=== PATIENT | female | born 1985 | race American Indian/Alaskan Native ===

== ENCOUNTER 2017-08-30 17:02 | Emergency (ER) | payer OTHER ==
[2017-08-30 17:02] VITALS: BMI 42.5
[2017-08-30 17:18] VITALS: PULSE 89; RESP 16; TEMP 98.4; O2SAT 100
[2017-08-30] MEDS ORDERED: Sodium Chloride 0.9% 1,000 ML IV STA (17:42)
--- NOTE | 2017-08-30 17:58 | ED PDOC ---
HPI: Female Pain Time Seen by Provider: 08/30/17 17:56 Chief Complaint (Nursing): Female Genitourinary Chief Complaint (Provider): vaginal bleeding History Per: Patient (32 y/o female h/o Anemia here with vaginal bleeding heavy x 1 day with bloodclots. Has had menses 2 weeks ago. No prior h/o abdominal vaginal bleeding.) Past Medical History Reviewed: Historical Data, Nursing Documentation, Vital Signs Vital Signs: Last Vital Signs Temp 98.4 F 08/30/17 17:14 Pulse 89 08/30/17 17:14 Resp 16 08/30/17 17:14 BP 187/111 H 08/30/17 17:14 Pulse Ox 100 08/30/17 17:14 - Medical History PMH: Arthritis, HTN (during ) - Family History Family History: States: No Known Family Hx - Home Medications Home Medications: Ambulatory Orders Medication Instructions Recorded Oxycodone HCl/Acetaminophen 5 - 325 mg PO Q4 PRN 01/29/16 [Percocet 5-325 mg Tablet] - Allergies Allergies/Adverse Reactions: Allergies Allergy/AdvReac Type Severity Reaction Status Date / Time scallops Allergy Mild RASH Verified 05/26/16 08:30 Review of Systems ROS Statement: Except As Marked, All Systems Reviewed And Found Negative Genitourinary Female: Positive for: Vaginal Bleeding Physical Exam - Reviewed Nursing Documentation Reviewed: Yes Vital Signs Reviewed: Yes - Physical Exam Appears: Positive for: Well, Non-toxic, No Acute Distress Head Exam: Positive for: ATRAUMATIC, NORMAL INSPECTION, NORMOCEPHALIC Skin: Positive for: Normal Color, Warm, DRY Eye Exam: Positive for: EOMI, Normal appearance, PERRL ENT: Positive for: Normal ENT Inspection Neck: Positive for: Normal, Painless ROM Cardiovascular/Chest: Positive for: Regular Rate, Rhythm Respiratory: Positive for: CNT, Normal Breath Sounds Gastrointestinal/Abdominal: Positive for: Normal Exam, Bowel Sounds, Soft Back: Positive for: Normal Inspection Extremity: Positive for: Normal ROM Neurologic/Psych: Positive for: Alert, Oriented - Laboratory Results Result Diagrams: 08/30/17 18:07 08/30/17 18:25 - ECG O2 Sat by Pulse Oximetry: 100 Disposition - Clinical Impression Clinical Impression: Dysfunctional uterine bleeding - Patient ED Disposition Is Patient to be Admitted: Transfer of Care - Disposition Disposition: Transfer of Care Disposition Time: 19:51 Condition: FAIR Forms: [employer] (Slovenian) Patient Signed Over To: Bettina Oliver Handoff Comments: REPEAT CBC AT 9PM/PENDING US READIN
[2017-08-30 18:40] LABS: BASO % 0.4 % (0.0-2.0); EOS # 0.1 K/uL (0.0-0.7); LYMPH # 2.2 K/uL (1.0-4.3); MEAN CELL VOLUME 77.5 fl (81.0-99.0); MEAN CORPUSCULAR HEMOGLOBIN 23.7 pg (27.0-31.0); MEAN CORPUSCULAR HGB CONC 30.5 g/dL (33.0-37.0); MEAN PLATELET VOLUME 9.5 fl (7.2-11.7); MONO # 0.5 K/uL (0.0-0.8); MONO % 6.5 % (0.0-10.0); NEUT # 4.4 K/uL (1.8-7.0); NEUT % 61.1 % (50.0-75.0); RED CELL DISTRIBUTION WIDTH 16.5 % (11.5-14.5); WHITE BLOOD COUNT 7.2 K/uL (4.8-10.8)
[2017-08-30 18:45] LABS: BLOOD UREA NITROGEN 15 mg/dl (7-17); CALCIUM 9.3 mg/dL (8.4-10.2); CARBON DIOXIDE 24 mmol/L (22-30); CHLORIDE 108 mmol/L (98-107); GFR AFRICAN-AMERICAN > 60; GLUCOSE,RANDOM 92 mg/dL (65-105); SODIUM 145 mmol/l (132-148)
--- NOTE | 2017-08-30 20:41 | ED PDOC ---
- Laboratory Results Result Diagrams: 08/30/17 21:15 08/30/17 18:25 - ECG O2 Sat by Pulse Oximetry: 100 - Progress ED Course And Treament: case endorsed to sports book writer from Oscar BARTON pending imaging, repeat CBC EXAM: US Pelvis, Transvaginal EXAM DATE/TIME: 08/30/2017 CLINICAL HISTORY: Signs and symptoms; Menstruation abnormalities; Irregular menstruation; Additional info: Evaluate for dyfunctional bleeding TECHNIQUE: Real-time transvaginal pelvic ultrasound (complete) with image documentation. Transvaginal imaging was used for better evaluation of the endometrium and adnexa. COMPARISON: No relevant comparison exam is available at the time of interpretation. FINDINGS: Uterus/cervix: The uterus is normal in size and contour. The endometrial stripe is normal in appearance and thickness, measuring 7 mm in maximal thickness. No endometrial or myometrial lesion is identified. Right ovary: The right ovary is normal in size and appearance. Doppler imaging demonstrates vascular flow in the right ovary. No right adnexal mass is visualized. Left ovary: The left ovary is normal in size and appearance. Doppler imaging demonstrates vascular flow in the left ovary. No left adnexal mass is visualized. Free fluid: A small amount of simple appearing free fluid in the posterior cul- de-sac is physiologic in amount. IMPRESSION: No evident acute abnormality. No etiology for the patient's dysfunctional uterine bleeding is identified. Repeat Hgb stable. Patient educated on findings, copies of labs/report given. Advised follow up [employer] as scheduled. Return to ED for worsening/concerning symptoms. Disposition - Clinical Impression Clinical Impression: Dysfunctional uterine bleeding, Anemia - POA Present On Arrival: None - Disposition Disposition: Routine/Home Disposition Time: 21:38 Condition: STABLE Instructions: Dysfunctional Uterine Bleeding (ED), Anemia (ED) Forms: [employer] (Setswana)
[2017-08-30 21:24] LABS: BASO # 0.1 K/uL (0.0-0.2); BASO % 0.6 % (0.0-2.0); EOS # 0.3 K/uL (0.0-0.7); HEMATOCRIT 30.6 % (34.0-47.0); LYMPH # 2.8 K/uL (1.0-4.3); LYMPH % 31.8 % (20.0-40.0); MEAN CELL VOLUME 76.7 fl (81.0-99.0); MEAN CORPUSCULAR HEMOGLOBIN 23.8 pg (27.0-31.0); MEAN CORPUSCULAR HGB CONC 31.1 g/dL (33.0-37.0); MEAN PLATELET VOLUME 9.1 fl (7.2-11.7); MONO # 0.4 K/uL (0.0-0.8); MONO % 4.9 % (0.0-10.0); NEUT # 5.3 K/uL (1.8-7.0); NEUT % 59.7 % (50.0-75.0); NRBC % 0.5 % (0.0-0.0); RED CELL DISTRIBUTION WIDTH 16.3 % (11.5-14.5); WHITE BLOOD COUNT 8.8 K/uL (4.8-10.8)
[2017-08-30 21:54] VITALS: BP 152/97
--- NOTE | 2017-08-31 09:29 | US ---
HISTORY: EVALUATE FOR DYFUNCTIONAL BLEEDING COMPARISON: None available. TECHNIQUE: Transvaginal only FINDINGS: UTERUS: Measures 9.6 x 4.6 x 6.1 cm. Normal in size and appearance. No fibroid or other mass lesion seen. ENDOMETRIUM: Measures 7 mm in diameter. Unremarkable. CERVIX: No cervical abnormality identified. RIGHT OVARY: Measures 2.8 x 1.7 x 2.6 cm. No solid mass. Normal flow. LEFT OVARY: Measures 3.1 x 1.3 x 2.3 cm. No solid mass. Normal flow. FREE FLUID: Small amount of free fluid in the cul-de-sac OTHER FINDINGS: None. IMPRESSION: Unremarkable pelvic ultrasound examination. Preliminary interpretation of this examination was reported by [employer] at 7:59 p.m. on 08/30/2017. There is concurrence of this report with the preliminary interpretation.
== END 2017-08-30 21:54 | disposition home or self-care (01) ==
LOC: H.ER 17:02
DX: N93.8 Other specified abnormal uterine and vaginal bleeding (principal); D64.9 Anemia, unspecified
CPT/HCPCS: 76830; 80048; 81025; 84443; 85025; 86850; 86900; 99283; J7040

== ENCOUNTER 2017-10-16 21:01 | Emergency (ER) | payer BC, OTHER ==
[2017-10-16 21:01] VITALS: BMI 42.5
[2017-10-16 21:17] VITALS: BP 151/95; PULSE 87; RESP 17; TEMP 99.5; O2SAT 100
[2017-10-16] MEDS ORDERED: Sodium Chloride 0.9% 1,000 ML IV STA (22:06)
[2017-10-16 22:46] LABS: RBC URINE 22 /hpf (0-3); URINE BILIRUBIN NEGATIVE (NEGATIVE); URINE BLOOD MODERATE (NEGATIVE); URINE COLOR YELLOW (YELLOW); URINE GLUCOSE (UA) NEG (Normal); URINE KETONE NEGATIVE (NEGATIVE); URINE LEUKOCYTE ESTERASE MOD Leu/uL (Negative); URINE PROTEIN 100 mg/dL (NEGATIVE); URINE UROBILINOGEN 0.2-1.0 mg/dL (0.2-1.0); WBC URINE 41 /hpf (0-5)
[2017-10-16 22:47] LABS: BASO # 0.1 K/uL (0.0-0.2); BASO % 0.7 % (0.0-2.0); EOS # 0.1 K/uL (0.0-0.7); EOS % 1.3 % (0.0-4.0); HEMATOCRIT 28.6 % (34.0-47.0); LYMPH # 1.8 K/uL (1.0-4.3); LYMPH % 18.4 % (20.0-40.0); MEAN CELL VOLUME 74.5 fl (81.0-99.0); MEAN CORPUSCULAR HEMOGLOBIN 22.8 pg (27.0-31.0); MEAN CORPUSCULAR HGB CONC 30.7 g/dL (33.0-37.0); MONO # 0.6 K/uL (0.0-0.8); MONO % 5.7 % (0.0-10.0); NEUT # 7.1 K/uL (1.8-7.0); NEUT % 73.9 % (50.0-75.0); RED CELL DISTRIBUTION WIDTH 16.7 % (11.5-14.5); WHITE BLOOD COUNT 9.7 K/uL (4.8-10.8)
[2017-10-16 23:01] LABS: ALKALINE PHOSPHATASE 112 U/L (38-126); ALT/SGPT 18 U/L (9-52); AST/SGOT 28 U/L (14-36); BILIRUBIN,TOTAL 0.4 mg/dl (0.2-1.3); BLOOD UREA NITROGEN 12 mg/dl (7-17); CALCIUM 9.1 mg/dL (8.4-10.2); CARBON DIOXIDE 22 mmol/L (22-30); CHLORIDE 105 mmol/L (98-107); GFR AFRICAN-AMERICAN > 60; GLUCOSE,RANDOM 98 mg/dL (65-105); POTASSIUM 3.8 MMOL/L (3.6-5.0); SODIUM 142 mmol/l (132-148); TOTAL PROTEIN 8.4 G/DL (6.3-8.2)
[2017-10-16 23:07] LABS: ALB/GLOB RATIO 1.2 (1.0-2.1)
--- NOTE | 2017-10-16 23:10 | ED PDOC ---
HPI: Abdomen Time Seen by Provider: 10/16/17 21:23 Chief Complaint (Nursing): Abdominal Pain Chief Complaint (Provider): Abdominal Pain History Per: Patient History/Exam Limitations: no limitations Onset/Duration Of Symptoms: Days (x 2) Current Symptoms Are (Timing): Still Present Additional Complaint(s): Justine is a 32 year old female with a past medical history of anemia and tubal ligation who presents to the Emergency Department complaining of abdominal pain for the past 2 days. Patient states pain occurs in her lower abdominal radiating bilaterally to flanks and has worsen since onset. At time will decrease to tolerable intensity. Since coming back from work, pain has been severe. Patient states she only took laxative to relieve pain, but with no relief. [place] constipation, but with normal appetite. [place] nausea, but denies vomiting, urinary symptoms, vaginal bleeding discharge, fever and chills. PMD: No Family Provider Past Medical History Vital Signs: Last Vital Signs Temp 99.5 F 10/16/17 21:14 Pulse 87 10/16/17 21:14 Resp 17 10/16/17 21:14 BP 151/95 H 10/16/17 21:14 Pulse Ox 100 10/17/17 14:54 - Medical History PMH: Arthritis, HTN (during ) - Surgical History Other surgeries: Tubal ligation - Family History Family History: States: No Known Family Hx - Social History Current smoker - smoking cessation education provided: No Alcohol: Social Drugs: Denies - Home Medications Home Medications: Ambulatory Orders Medication Instructions Recorded Oxycodone HCl/Acetaminophen 5 - 325 mg PO Q4 PRN 01/29/16 [Percocet 5-325 mg Tablet] Ciprofloxacin HCl [Cipro] 500 mg PO BID #20 tab 10/17/17 Naproxen [Naprosyn] 1 tab PO BID PRN #30 tab 10/17/17 traMADol [Ultram] 50 mg PO TID PRN #10 tab 10/17/17 - Allergies Allergies/Adverse Reactions: Allergies Allergy/AdvReac Type Severity Reaction Status Date / Time scallops Allergy Mild RASH Verified 10/16/17 21:17 Review of Systems ROS Statement: Except As Marked, All Systems Reviewed And Found Negative (and as per HPI) Constitutional: Negative for: Fever, Chills Gastrointestinal: Positive for: Abdominal Pain (Lower abdominal pain radiating bilaterally to flanks) Genitourinary Female: Negative for: Dysuria, Hematuria, Vaginal Discharge Physical Exam - Reviewed Nursing Documentation Reviewed: Yes Vital Signs Reviewed: Yes - Physical Exam Appears: Positive for: Non-toxic, In Acute Distress Head Exam: Positive for: ATRAUMATIC, NORMOCEPHALIC Skin: Positive for: Warm, Dry Eye Exam: Positive for: EOMI, PERRL ENT: Negative for: Pharyngeal Erythema, Tonsillar Exudate Neck: Positive for: Painless ROM, Supple Cardiovascular/Chest: Positive for: Regular Rate, Rhythm, Chest Non Tender. Negative for: Murmur Respiratory: Positive for: Normal Breath Sounds. Negative for: Respiratory Distress Gastrointestinal/Abdominal: Positive for: Soft, Tenderness (mild suprapubic ttp) . Negative for: Mass, Distended, Guarding, Rebound Back: Positive for: L CVA Tenderness, R CVA Tenderness. Negative for: Vertebral Tenderness, Decreased ROM Extremity: Positive for: Normal ROM. Negative for: Deformity Lymphatic: Negative for: Adenopathy Neurologic/Psych: Positive for: Alert. Negative for: Motor/Sensory Deficits - Laboratory Results Result Diagrams: 10/16/17 22:44 10/16/17 22:44 Interpretation Of Abn Labs: Anemia, stable c/w previous. UA cw UTI - ECG O2 Sat by Pulse Oximetry: 100 (RA) Pulse Ox Interpretation: Normal Medical Decision Making Medical Decision Making: Time: 21:50 Impressions: Pelvic Pain and Flank Pain Differentials includes but not limited to: Cystitis, Urinary Tract Infection, Pyelonephritis, Renal Calculi, Enteritis, Colitis Plan: - CT Abdominal and Pelvis Without PO or IV Contrast - CMP - Drug Screen, Urine - CBC - Sodium Chloride 0.9% 1,000 ml IV 999 mls/hr - Toradol 30 mg IVP - Tylenol 325 mg Tab - Urine Culture - Urinalysis EXAM: CT Abdomen and Pelvis Without Intravenous Contrast CLINICAL HISTORY: 32 years old, female; Pain; Abdominal pain; Flank; Lower; Prior surgery; Surgery date: 6+ months; Surgery type: Tubal ligation; Additional info: Bilateral flank TECHNIQUE: Axial computed tomography images of the abdomen and pelvis without intravenous contrast. All CT scans at this facility use one or more dose reduction techniques, viz.: automated exposure control; ma/kV adjustment per patient size (including targeted exams where dose is matched to indication; i.e. head); or iterative reconstruction technique. Coronal and sagittal reformatted images were created and reviewed. COMPARISON: CT - ABD PELVIS PO IV CONTRAST 2016-05-26 12:38 FINDINGS: Lower thorax: There is minimal bibasilar atelectatic change or scarring. ABDOMEN: Liver: Stable hepatomegaly. Gallbladder and bile ducts: Stable cholelithiasis without pericholecystic inflammatory change. No ductal dilation. Pancreas: Unremarkable. No ductal dilation. Spleen: Unremarkable. No splenomegaly. Adrenals: Unremarkable. No mass. Kidneys and ureters: New since the prior exam and is mild wall thickening in the bilateral ureters but no visible obstructing calculus, cannot exclude bilateral ureteritis. Stomach and bowel: Unremarkable. No obstruction. No mucosal thickening. Appendix: The appendix is unremarkable and seen best on axial image 62 of series 2. PELVIS: Bladder: Unremarkable. No stones. Reproductive: Unremarkable as visualized. ABDOMEN and PELVIS: Intraperitoneal space: Unremarkable. No free air. No significant fluid collection. Bones/joints: No acute fracture. No dislocation. Soft tissues: Unremarkable. Vasculature: Unremarkable. No abdominal aortic aneurysm. Lymph nodes: Unremarkable. No enlarged lymph nodes. IMPRESSION: 1. Stable cholelithiasis without pericholecystic inflammatory change. 2. New since the prior exam and is mild wall thickening in the bilateral ureters but no visible obstructing calculus, cannot exclude bilateral ureteritis. Thank you for allowing us to participate in the care of your patient. Dictated and Authenticated by: Deangelo Lombardo MD 10/16/2017 11:37 PM Eastern Time ([place] & [place] Scribe Attestation: Documented by Aditya Rayo, acting as a scribe for Angelita Calzada MD. Provider Scribe Attestation: All medical record entries made by the Scribe were at my direction and personally dictated by me. I have reviewed the chart and agree that the record accurately reflects my personal performance of the history, physical exam, medical decision making, and the department course for this patient. I have also personally directed, reviewed, and agree with the discharge instructions and disposition. Disposition - Clinical Impression Clinical Impression: Cystitis, Ureteritis, Cholelithiasis Counseled Patient/Family Regarding: Studies Performed, Diagnosis, Need For Followup, Rx Given - Disposition Referrals: [facility] [place] [Outside] [facility] [Outside] Disposition: Routine/Home Disposition Time: 00:10 Condition: IMPROVED Additional Instructions: DRINK PLENTY OF HYDRATING FLUIDS AND REST FOLLOW UP WITH YOUR DOCTOR OR [facility] IN 48 HOURS FOR REEVALUATION RETURN TO ER FOR INTRACTABLE PAIN OR VOMITING, HIGH FEVERS, FAINTING OR NEAR FAINTING OR ANY OTHER WORRISOME SYMPTOMS Prescriptions: Ciprofloxacin HCl [Cipro] 500 mg PO BID #20 tab Naproxen [Naprosyn] 1 tab PO BID PRN #30 tab PRN Reason: Pain traMADol [Ultram] 50 mg PO TID PRN #10 tab PRN Reason: SEVERE PAIN ONLY Instructions: Gallstones (ED), Urinary Tract Infection in Women (ED) Forms: [employer] (Syriac)
[2017-10-16] MEDS ORDERED: cefTRIAXone IV 1 gm in Dextros 0 ML IVPB ONE (23:59)
[2017-10-17] MEDS ORDERED: cefTRIAXone IV 1 gm in Dextros 50 ML IVPB STA (00:05)
[2017-10-17] MEDS ORDERED: cefTRIAXone IV 1 gm in Dextros 50 ML IVPB ONE (00:18)
--- NOTE | 2017-10-17 10:31 | CT ---
PROCEDURE: CT Abdomen and Pelvis without intravenous contrast HISTORY: bilateral flank COMPARISON: 05/26/2016 TECHNIQUE: Without contrast.. Contrast Dose: 0 Radiation dose: Total exam DLP = 979.35 mGy-cm. This CT exam was performed using one or more of the following dose reduction techniques: Automated exposure control, adjustment of the mA and/or kV according to patient size, and/or use of iterative reconstruction technique. FINDINGS: LOWER THORAX: Unremarkable. LIVER: Unremarkable. No gross lesion or ductal dilatation. GALLBLADDER AND BILE DUCTS: Cholelithiasis. Mild mural thickening. No pericholecystic fluid. Consider evaluation with abdominal ultrasound there is clinical concern regarding cholecystitis. PANCREAS: Unremarkable. No gross lesion or ductal dilatation. SPLEEN: Unremarkable. ADRENALS: Unremarkable. No mass. KIDNEYS AND URETERS: Unremarkable. No hydronephrosis. No solid mass. No hydroureter or ureteral calculus. VASCULATURE: Unremarkable. No aortic aneurysm. BOWEL: Unremarkable. No obstruction. No gross mural thickening. APPENDIX: Unremarkable. Normal appendix. PERITONEUM: Unremarkable. No free fluid. No free air. LYMPH NODES: Unremarkable. No enlarged lymph nodes. BLADDER: Unremarkable. REPRODUCTIVE: Normal uterus BONES: No acute fracture. OTHER FINDINGS: None. IMPRESSION: Cholelithiasis with mild mural thickening but no pericholecystic fluid. Please correlate for clinical concern regarding cholecystitis. The remainder of the examination is unremarkable. Preliminary interpretation of this examination was reported by [employer] at 11:37 p.m. on 10/16/2017. There is concurrence of this report with the preliminary interpretation.
== END 2017-10-17 01:54 | disposition home or self-care (01) ==
LOC: H.ER 21:01
DX: N30.90 Cystitis, unspecified without hematuria (principal); K80.20 Calculus of gallbladder without cholecystitis without obstruction; N34.1 Nonspecific urethritis; I10 Essential (primary) hypertension
CPT/HCPCS: 74176; 80053; 81003; 85025; 87086; 96374; 99283; G0480; J0696; J1885; J7040

== ENCOUNTER 2018-02-01 16:31 | Emergency (ER) | payer OTHER ==
[2018-02-01 16:31] VITALS: BMI 38.2
[2018-02-01 16:50] VITALS: BP 143/76; RESP 16; TEMP 99.1; O2SAT 99
[2018-02-01] MEDS ORDERED: Sodium Chloride 0.9% 1,000 ML IV STA (17:49)
[2018-02-01 18:20] LABS: BASO # 0.1 K/uL (0.0-0.2); BASO % 1.1 % (0.0-2.0); EOS # 0.1 K/uL (0.0-0.7); EOS % 1.7 % (0.0-4.0); HEMOGLOBIN 8.3 g/dL (12.0-16.0); LYMPH # 1.9 K/uL (1.0-4.3); LYMPH % 25.5 % (20.0-40.0); MEAN CELL VOLUME 70.6 fl (81.0-99.0); MEAN CORPUSCULAR HGB CONC 31.2 g/dL (33.0-37.0); MEAN PLATELET VOLUME 8.8 fl (7.2-11.7); MONO # 0.5 K/uL (0.0-0.8); MONO % 7.2 % (0.0-10.0); NEUT # 4.8 K/uL (1.8-7.0); NEUT % 64.5 % (50.0-75.0); NRBC % 0.2 % (0.0-0.0); RBC 3.78 Mil/uL (3.80-5.20); RED CELL DISTRIBUTION WIDTH 19.1 % (11.5-14.5); WHITE BLOOD COUNT 7.5 K/uL (4.8-10.8)
[2018-02-01 18:29] LABS: ALB/GLOB RATIO 1.2 (1.0-2.1); ALBUMIN 4.1 g/dL (3.5-5.0); ALT/SGPT 27 U/L (9-52); AST/SGOT 25 U/L (14-36); BLOOD UREA NITROGEN 11 mg/dl (7-17); CALCIUM 9.2 mg/dL (8.4-10.2); GFR AFRICAN-AMERICAN > 60; GFR NON-AFRICAN AMERICAN > 60; LIPASE 109 U/L (23-300)
[2018-02-01 18:47] LABS: INR 1.1 (0.9-1.2); PARTIAL THROMBOPLASTIN TIME 34.5 Seconds (25.6-37.1); PROTHROMBIN TIME 11.7 Seconds (9.8-13.1)
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
[2018-02-01 20:30] VITALS: PULSE 69
--- NOTE | 2018-02-02 10:00 | RAD ---
HISTORY: abdominal pain COMPARISON: No prior. TECHNIQUE: Chest PA and lateral FINDINGS: LUNGS: No active pulmonary disease. PLEURA: No significant pleural effusion identified. No pneumothorax apparent. CARDIOVASCULAR: Normal. OSSEOUS STRUCTURES: No significant abnormalities. VISUALIZED UPPER ABDOMEN: Normal. OTHER FINDINGS: None. IMPRESSION: No active disease.
--- NOTE | 2018-02-02 13:25 | CARD ---
APPROVED REPORT EKG Measurement Heart [id number] <Conclusion> Normal sinus rhythm LVH (?? noram variant) Normal ECG
== END 2018-02-01 20:57 | disposition home or self-care (01) ==
LOC: H.ER 16:31
DX: K80.70 Calculus of gallbladder and bile duct without cholecystitis without obstruction (principal); I10 Essential (primary) hypertension
CPT/HCPCS: 71046; 80053; 81025; 82150; 83690; 84484; 85025; 85378; 85610; 85730; 86850; 86900; 87040; 93005; 96374; 96375; 96376; 99283; J2270; J2405; J7040

== ENCOUNTER 2018-02-05 11:23 | Day surgery (SDC) | payer OTHER ==
[2018-01-14 01:57] VITALS: BMI 38.2
[2018-02-05] MEDS ORDERED: Bupivacaine 0.5% Inj(30mL) ONE (12:28)
[2018-02-05 12:42] VITALS: RESP 18
[2018-02-05] MEDS ORDERED: Propofol 10 mg/ml Inj (20 ML) ONE (12:50)
[2018-02-05] MEDS ORDERED: Midazolam 2 MG/2 ML VIAL ONE (12:51)
[2018-02-05] MEDS ORDERED: ePHEDrine 50 mg/ml Inj ONE (12:51)
[2018-02-05] MEDS ORDERED: Succinylcholine 200 mg/10 ml Inj IV ONE (12:52)
[2018-02-05] MEDS ORDERED: Lidocaine 4% (Laryng-O-Jet) Kit MM ONE (12:52)
[2018-02-05] MEDS ORDERED: Rocuronium 10 mg/ml (5 ml) ONE (12:52)
[2018-02-05] MEDS ORDERED: Neostigmine 1:1000 (1 mg/ml) Inj ONE (13:17)
[2018-02-05] MEDS ORDERED: Dexamethasone 4 mg/1 ml ONE (13:18)
[2018-02-05] MEDS ORDERED: Bupivacaine 0.5% 50 ML IJ ONE (13:26)
--- NOTE | 2018-02-05 14:12 | PCM.SURG1 ---
Surgeon's Initial Post Op Note - Surgeon's Notes Surgeon: ilsa Staffing And Scheduling Coordinator: rufus quezada Type of Anesthesia: General Endo Anesthesia Administered By: samia Pre-Operative Diagnosis: cholecystitis Operative Findings: chronic changes Post-Operative Diagnosis: same Operation Performed: lap quique Specimen/Specimens Removed: gallbladder Estimated Blood Loss: EBL {In ML}: 5 Blood Products Given: N/A Drains Used: No Drains Post-Op Condition: Good Date of Surgery/Procedure: 02/05/18 Time of Surgery/Procedure: 13:00
[2018-02-05] MEDS: HYDROmorphone 0.5 mg/0.5 ml ISec IVP PRN ×6 (14:14→14:55)
[2018-02-05] MEDS ORDERED: HYDROmorphone 0.5 mg/0.5 ml ISec ONE (14:14)
[2018-02-05] MEDS ORDERED: Oxycodone/Acetaminophen 5/325 mg Tab PO PRN (14:18)
[2018-02-05] MEDS ORDERED: Lactated Ringer's 1,000 ML IV SCH (14:45)
[2018-02-05] MEDS ORDERED: Lactated Ringer's 500 ML IV ONE (15:45)
--- NOTE | 2018-02-05 16:13 | OP ---
PROCEDURE DATE: 02/05/2018 PREOPERATIVE DIAGNOSES: Cholecystitis and cholelithiasis. POSTOPERATIVE DIAGNOSES: Cholecystitis and cholelithiasis. PROCEDURE: Laparoscopy and laparoscopic cholecystectomy. SURGEON: Boris Carroll MD SWIMMING POOL MAINTENANCE SUPERVISOR: Dr. Jensen . TYPE OF ANESTHESIA: General endotracheal. ANESTHESIA ADMINISTERED BY: Bettina Nicole MD OPERATIVE FINDINGS: Chronic cholecystitis. PREPARATION AND PROCEDURE: The patient was brought to the Operating Room and after successful induction of general endotracheal anesthesia was obtained, the abdomen was prepped and draped in the usual manner. A Veress needle was inserted in the periumbilical region and making sure that it was in the intra-abdominal cavity, adequate pneumoperitoneum was obtained. The needle was removed. A periumbilical incision was made and a 10 mm trocar was inserted. A full laparoscopy did not reveal any gross intra-abdominal pathology. So at this point under direct visualization, another 10 mm trocar was inserted just right of the midline in the epigastric region and two 5 mm trocars were inserted in the right upper quadrant. At this point, dissection was carried out of the triangle of Calot. The cystic duct was visualized and dissected down to the confluence of the common bile duct. The cystic duct was triply clipped and divided and continuing dissection at the triangle of Calot, the cystic artery was visualized, triply clipped and divided. The gallbladder was then dissected from the gallbladder fossa using hemocautery and obtaining hemostasis the same way. Just before removing the whole gallbladder from its fossa, the area was copiously irrigated, hemostasis was obtained and then the gallbladder was totally removed from its fossa. The gallbladder was removed from the peritoneal cavity via the umbilical incision and once this was done, the trocar was reinserted and the right upper quadrant was copiously irrigated and suctioned. Once this was done and making sure that hemostasis was excellent, all trocars were removed under direct visualization and the umbilical and epigastric incisions were closed with #10 Vicryl. The skin was approximated using fine nylon. All incisions were infiltrated with Marcaine. POSTOPERATIVE CONDITION: The patient tolerated the procedure very well and was transferred to the Recovery Room in good general status. Boris Carroll MD [facility] # [id number]
--- NOTE | 2018-02-05 16:46 | CP.PCM.PN ---
Subjective - Date & Time of Evaluation Date of Evaluation: 02/05/18 Time of Evaluation: 16:00 - Subjective Subjective: Pt seen and examined post op. Minimal sanguinous drainage dressing changed. Pain controlled with percocet. Objective - Vital Signs/Intake and Output Vital Signs (last 24 hours): Temp Pulse Resp BP Pulse Ox 98.5 F 82 18 131/81 95 02/05/18 16:00 02/05/18 16:00 02/05/18 16:00 02/05/18 16:00 02/05/18 16:00 Intake and Output: 02/05/18 02/05/18 06:59 18:59 Intake Total 1200 Balance 1200 - Medications Medications: Current Medications Lactated Ringer's (Lactated Ringer's) 1,000 mls @ 100 mls/hr IV .Q10H CAM[place] Oxycodone/Acetaminophen (Percocet 5/325 Mg Tab) 1 tab PO Q4 PRN PRN Reason: Pain, moderate (4-7) Stop: 02/08/18 14:19
[2018-02-05 17:32] VITALS: O2SAT 100
[2018-02-05 19:26] VITALS: BP 130/70; PULSE 85; TEMP 98.4
== END 2018-02-05 19:45 | disposition home or self-care (01) ==
LOC: H.OPSURG 11:23
PROVIDERS: ATTEND Surgery
DX: K80.10 Calculus of gallbladder with chronic cholecystitis without obstruction (principal)
CPT/HCPCS: 47562; 88304; J0330; J0690; J1100; J1170; J1885; J2001; J2250; J2405; J2704; J2710; J3010; J7030; J7120

== ENCOUNTER 2018-07-02 08:25 | Emergency (ER) | payer BC, OTHER ==
[2018-07-02 08:31] VITALS: RESP 18; TEMP 98.6
[2018-07-02 08:32] VITALS: BMI 39.0
[2018-07-02] MEDS ORDERED: Sodium Chloride 0.9% 1,000 ML IV STA (08:54)
[2018-07-02] MEDS ORDERED: DiphenhydrAMINE 50 mg/ml Inj IVP STA (08:54)
--- NOTE | 2018-07-02 08:58 | ED PDOC ---
HPI: Headache Time Seen by Provider: 07/02/18 08:30 Chief Complaint (Nursing): Headache Chief Complaint (Provider): Headache History Per: Patient History/Exam Limitations: no limitations Onset/Duration Of Symptoms: Days (x 2 weeks ) Current Symptoms Are (Timing): Still Present Quality: "Pain" Preceeding Symptoms: Visual Disturbances Associated Symptoms: Other (spots in vision) Additional Complaint(s): 32 year old female with a history of anemia presents to the ED with a frontal headache for the last 2 weeks, associated with spots in her vision. Patient reports that the headache has been constant for the last 2 days. She has experienced similar symptoms before and took Ibuprofen at 06:00 without relief. Admits she is regularly non compliant with her iron pills. Denies fever, neck stiffness and this being worst headache of her life. PMD: Ashanti Clarke - Risk Factors SAH Risk Factors: Neg: Worst Headache Of Life Past Medical History Reviewed: Historical Data Vital Signs: Last Vital Signs Temp 98.6 F 07/02/18 08:30 Pulse 92 H 07/02/18 08:30 Resp 18 07/02/18 08:30 BP 144/85 07/02/18 08:30 Pulse Ox 98 07/02/18 08:30 - Medical History PMH: Anemia, Arthritis, Gall Bladder Disease (Stones), HTN (gestational) Denies: Chronic Kidney Disease - Surgical History Surgical History: Cholecystectomy Other surgeries: tubal ligation - Family History Family History: States: Unknown Family Hx - Social History Current smoker - smoking cessation education provided: No Ex-Smoker (has not smoked in the last 12 months): No Alcohol: Social Drugs: Denies - Home Medications Home Medications: Ambulatory Orders Medication Instructions Recorded Ibuprofen [Motrin Tab] 800 mg PO Q8 PRN #15 tab 02/01/18 oxyCODONE/Acetaminophen [Percocet 1 mg PO Q4 PRN 02/05/18 5/325 mg Tab] Naproxen [Naprosyn] 500 mg PO BID PRN #15 tablet 07/02/18 - Allergies Allergies/Adverse Reactions: Allergies Allergy/AdvReac Type Severity Reaction Status Date / Time scallops Allergy Mild RASH Verified 07/02/18 08:36 Review of Systems ROS Statement: Except As Marked, All Systems Reviewed And Found Negative Constitutional: Negative for: Fever, Other ("worst headache of life" ) Neurological: Positive for: Headache (constant frontal) Physical Exam - Reviewed Nursing Documentation Reviewed: Yes Vital Signs Reviewed: Yes - Physical Exam Appears: Positive for: No Acute Distress Head Exam: Positive for: ATRAUMATIC, NORMAL INSPECTION, NORMOCEPHALIC Skin: Positive for: Normal Color, Warm, DRY Eye Exam: Positive for: EOMI, Normal appearance, PERRL Neck: Positive for: Normal, Painless ROM, Supple Cardiovascular/Chest: Positive for: Regular Rate, Rhythm Respiratory: Positive for: CNT, Normal Breath Sounds Gastrointestinal/Abdominal: Positive for: Normal Exam, Soft. Negative for: Tenderness Back: Positive for: Normal Inspection. Negative for: L CVA Tenderness, R CVA Tenderness Extremity: Positive for: Normal ROM. Negative for: Deformity Neurologic/Psych: Positive for: Alert, Oriented (x 3). Negative for: Motor/ Sensory Deficits - Laboratory Results Result Diagrams: 07/02/18 09:59 07/02/18 09:59 - ECG O2 Sat by Pulse Oximetry: 98 (RA) Pulse Ox Interpretation: Normal Medical Decision Making Medical Decision Making: Time: 08:54 Impression: headache Initial Plan: --Blood type --Head CT --Urine dip --Urine preg --CBC --PTT --Prothrombin --Benadryl 25 mg IVP --NS IV --Phenergan in NS 50 ml IVPB 11:[address] FINDINGS: HEMORRHAGE: No intracranial hemorrhage. BRAIN: Normal gifford-white matter differentiation and density are appreciated throughout the cerebrum and cerebellum with the brainstem appearing unremarkable as well. There is no mass effect. There is no suspicious extra-axial fluid collection and the midline brain anatomy appears diffusely unremarkable. VENTRICLES: Unremarkable. No hydrocephalus. CALVARIUM: No destructive bony lesion or displaced fracture identified including through the skullbase. PARANASAL SINUSES: Unremarkable as visualized. No significant inflammatory changes. MASTOID AIR CELLS: Unremarkable as visualized. No inflammatory changes. OTHER FINDINGS: None. IMPRESSION: Unremarkable noncontrast CT head. ---- Scribe Attestation: Documented by Janice Emmanuel, acting as a scribe for Radha Jin MD Provider Scribe Attestation: All medical record entries made by the Scribe were at my direction and personally dictated by me. I have reviewed the chart and agree that the record accurately reflects my personal performance of the history, physical exam, medical decision making, and the department course for this patient. I have also personally directed, reviewed, and agree with the discharge instructions and disposition. Disposition - Clinical Impression Clinical Impression: Headache - Disposition Referrals: Suraj De León MD [Medical Doctor] - Disposition: Routine/Home Disposition Time: 12:39 Condition: IMPROVED Additional Instructions: FOLLOW-UP WITH PMD WITHIN 2 DAYS FOR REEVALUATION. Prescriptions: Naproxen [Naprosyn] 500 mg PO BID PRN #15 tablet PRN Reason: Pain, Moderate (4-7) Instructions: Headache, Adult Forms: [facility] (H[place]ian)
[2018-07-02] MEDS ORDERED: Promethazine 25 MG in Sodium Chloride 0.9% 50 ML IVPB STA (09:37)
[2018-07-02] MEDS ORDERED: DiphenhydrAMINE 50 mg/ml Inj ONE (09:46)
[2018-07-02 10:24] LABS: BASO % 0.6 % (0.0-2.0); EOS # 0.1 K/uL (0.0-0.7); EOS % 1.7 % (0.0-4.0); LYMPH # 1.4 K/uL (1.0-4.3); LYMPH % 23.8 % (20.0-40.0); MEAN CORPUSCULAR HEMOGLOBIN 22.1 pg (27.0-31.0); MEAN CORPUSCULAR HGB CONC 31.6 g/dL (33.0-37.0); MEAN PLATELET VOLUME 8.8 fl (7.2-11.7); MONO # 0.4 K/uL (0.0-0.8); MONO % 7.5 % (0.0-10.0); NEUT # 3.9 K/uL (1.8-7.0); NEUT % 66.4 % (50.0-75.0); NRBC % 0.2 % (0.0-0.0); RBC 4.07 Mil/uL (3.80-5.20); RED CELL DISTRIBUTION WIDTH 18.1 % (11.5-14.5); WHITE BLOOD COUNT 5.9 K/uL (4.8-10.8)
[2018-07-02 10:28] LABS: INR 1.1; PROTHROMBIN TIME 12.1 Seconds (9.8-13.1)
[2018-07-02 10:31] LABS: PARTIAL THROMBOPLASTIN TIME 36.4 Seconds (25.6-37.1)
[2018-07-02 10:37] LABS: ALB/GLOB RATIO 1.2 (1.0-2.1); ALBUMIN 4.2 g/dL (3.5-5.0); ALT/SGPT 24 U/L (9-52); AST/SGOT 21 U/L (14-36); BLOOD UREA NITROGEN 11 mg/dl (7-17); CALCIUM 9.1 mg/dL (8.4-10.2); GFR AFRICAN-AMERICAN > 60; GFR NON-AFRICAN AMERICAN > 60
--- NOTE | 2018-07-02 11:34 | CT ---
Date of service: 07/02/2018 PROCEDURE: CT HEAD WITHOUT CONTRAST. HISTORY: n COMPARISON: None available. TECHNIQUE: Axial computed tomography images were obtained through the head/brain without intravenous contrast. Radiation dose: Total exam DLP = 855.26 mGy-cm. This CT exam was performed using one or more of the following dose reduction techniques: Automated exposure control, adjustment of the mA and/or kV according to patient size, and/or use of iterative reconstruction technique. FINDINGS: HEMORRHAGE: No intracranial hemorrhage. BRAIN: Normal gifford-white matter differentiation and density are appreciated throughout the cerebrum and cerebellum with the brainstem appearing unremarkable as well. There is no mass effect. There is no suspicious extra-axial fluid collection and the midline brain anatomy appears diffusely unremarkable. VENTRICLES: Unremarkable. No hydrocephalus. CALVARIUM: No destructive bony lesion or displaced fracture identified including through the skullbase. PARANASAL SINUSES: Unremarkable as visualized. No significant inflammatory changes. MASTOID AIR CELLS: Unremarkable as visualized. No inflammatory changes. OTHER FINDINGS: None. IMPRESSION: Unremarkable noncontrast CT head.
[2018-07-02 15:15] VITALS: BP 130/80; PULSE 88
[2018-07-04 18:13] VITALS: O2SAT 98
== END 2018-07-02 12:53 | disposition home or self-care (01) ==
LOC: H.ER 08:25
DX: R51 Headache (principal); D64.9 Anemia, unspecified
CPT/HCPCS: 70450; 80053; 81025; 85025; 85610; 85730; 86850; 86900; 96374; 99285; J1200; J2550; J7030

== ENCOUNTER 2018-08-30 16:19 | Emergency (ER) | payer BC, OTHER ==
[2018-08-30 16:19] VITALS: BMI 39.0
[2018-08-30] MEDS ORDERED: Sodium Chloride 0.9% 1,000 ML IV STA (16:34)
[2018-08-30 16:59] LABS: BASO # 0.1 K/uL (0.0-0.2); BASO % 0.9 % (0.0-2.0); EOS # 0.1 K/uL (0.0-0.7); EOS % 1.6 % (0.0-4.0); LYMPH # 1.6 K/uL (1.0-4.3); LYMPH % 21.5 % (20.0-40.0); MEAN CELL VOLUME 71.7 fl (81.0-99.0); MEAN CORPUSCULAR HEMOGLOBIN 22.8 pg (27.0-31.0); MEAN CORPUSCULAR HGB CONC 31.8 g/dL (33.0-37.0); MEAN PLATELET VOLUME 8.6 fl (7.2-11.7); MONO # 0.5 K/uL (0.0-0.8); MONO % 6.9 % (0.0-10.0); NEUT # 5.1 K/uL (1.8-7.0); NEUT % 69.1 % (50.0-75.0); RBC 3.97 Mil/uL (3.80-5.20); WHITE BLOOD COUNT 7.3 K/uL (4.8-10.8)
[2018-08-30 17:09] LABS: ALB/GLOB RATIO 1.3 (1.0-2.1); ALBUMIN 4.3 g/dL (3.5-5.0); ALT/SGPT 25 U/L (9-52); AST/SGOT 19 U/L (14-36); BLOOD UREA NITROGEN 10 mg/dl (7-17); CALCIUM 9.3 mg/dL (8.4-10.2); GFR NON-AFRICAN AMERICAN > 60
--- NOTE | 2018-08-30 18:03 | ED PDOC ---
HPI: Abdomen <Aislinn Healy - Last Filed: 09/02/18 13:03> History Per: Patient Additional Complaint(s): Pt. states earlier today she developed an abrupt onset of suprapubic pain while attempting to have a BM. Reports pain is intermittent. She was seen by Dr. 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 States she performed a UA and it showed mild leukocytes and trace blood. Denies dysuria, hematuria, fever, N/V/D, diarrhea, melena, hematochezia, BRBPR, rectal pain. <Ivan Lopez - Last Filed: 09/03/18 05:22> Time Seen by Provider: 08/30/18 16:27 Chief Complaint (Nursing): Abdominal Pain Past Medical History Vital Signs: Last Vital Signs Temp 98.2 F 08/30/18 23:00 Pulse 71 08/30/18 23:00 Resp 18 08/30/18 23:00 BP 153/99 H 08/30/18 23:00 Pulse Ox 100 08/30/18 23:00 <Aislinn Healy - Last Filed: 09/02/18 13:03> Reviewed: Historical Data, Nursing Documentation, Vital Signs Vital Signs: Last Vital Signs Temp 98.5 F 08/30/18 16:26 Pulse 107 H 08/30/18 16:26 Resp 16 08/30/18 16:26 BP 155/90 H 08/30/18 16:26 Pulse Ox 99 08/30/18 16:26 - Medical History PMH: Anemia, Arthritis, Gall Bladder Disease (Stones), HTN (gestational) Denies: Chronic Kidney Disease - Surgical History Surgical History: Cholecystectomy - Family History Family History: States: No Known Family Hx <Ivan Lopez - Last Filed: 09/03/18 05:22> - Home Medications Home Medications: Ambulatory Orders Medication Instructions Recorded Ibuprofen [Motrin Tab] 800 mg PO Q8 PRN #15 tab 02/01/18 oxyCODONE/Acetaminophen [Percocet 1 mg PO Q4 PRN 02/05/18 5/325 mg Tab] Naproxen [Naprosyn] 500 mg PO BID PRN #15 tablet 07/02/18 Naproxen [Naprosyn] 500 mg PO Q12 PRN #20 tablet 08/30/18 Nitrofurantoin Macrocrystals 100 mg PO BID #13 cap 08/30/18 [Macrobid] Phenazopyridine HCl [Pyridium] 100 mg PO TID PRN #5 tab 08/30/18 - Allergies Allergies/Adverse Reactions: Allergies Allergy/AdvReac Type Severity Reaction Status Date / Time scallops Allergy Mild RASH Verified 07/02/18 08:36 Review of Systems ROS Statement: Except As Marked, All Systems Reviewed And Found Negative Gastrointestinal: Positive for: Abdominal Pain <Ivan Lopez - Last Filed: 09/03/18 05:22> Physical Exam - Physical Exam Appears: Positive for: Well, Non-toxic, No Acute Distress Skin: Positive for: Normal Color, Warm. Negative for: Rash Eye Exam: Positive for: Normal appearance Cardiovascular/Chest: Positive for: Regular Rate, Rhythm, Chest Non Tender Respiratory: Positive for: Normal Breath Sounds Gastrointestinal/Abdominal: Positive for: Normal Exam, Soft, Tenderness (minimal suprapubic tenderness) Back: Positive for: Normal Inspection. Negative for: L CVA Tenderness, R CVA Tenderness Neurologic/Psych: Positive for: Alert, Oriented (x3). Negative for: Aphasia, Facial Droop <Ivan Lopez - Last Filed: 09/03/18 05:22> - Laboratory Results Result Diagrams: 08/30/18 16:56 08/30/18 16:56 <Aislinn Healy - Last Filed: 09/02/18 13:03> - Laboratory Results Result Diagrams: 08/30/18 16:56 08/30/18 16:56 Urine POC: Negative Urine dip results: Positive for: Leukocyte Esterase (small). Negative for: Blood, Nitrate, Ketones, Glucose, Bilirubin, Protein - ECG O2 Sat by Pulse Oximetry: 99 - Progress ED Course And Treament: Labs, toradol 30mg IV, IV NS bolus, zofran 4mg IV ordered. Suprapubic pain still present but is still intermittent. TVUS, pyridium 200mg PO ordered. 193 TVUS: Small complex ovarian cyst Pt. informed of results. States pain has improved but has not completely resolved. Pt. is concerned about having a kidney stone. CT abd/pelvis w/o contrast ordered. <Ivan Lopez - Last Filed: 09/03/18 05:22> Disposition <Aislinn Healy - Last Filed: 09/02/18 13:03> - Patient ED Disposition Is Patient to be Admitted: Transfer of Care (Signed out to Benito BARTON pending CT results.) - Disposition Disposition Time: 20:00 <Ivan Lopez - Last Filed: 09/03/18 05:22> - Clinical Impression Clinical Impression: UTI (urinary tract infection), Ovarian cyst - Disposition Condition: IMPROVED Prescriptions: Naproxen [Naprosyn] 500 mg PO Q12 PRN #20 tablet PRN Reason: Pain, Moderate (4-7) Nitrofurantoin Macrocrystals [Macrobid] 100 mg PO BID #13 cap Phenazopyridine HCl [Pyridium] 100 mg PO TID PRN #5 tab PRN Reason: Urinary Discomt Instructions: Urinary Tract Infections in Adults, Ovarian Cysts Forms: [facility] (Surinamese), [facility] ED School/Work Excuse Addendum Addendum: 09/02/18 13:03 reviewed PA chart. Agree with assessment and plan. <Aislinn Healy - Last Filed: 09/02/18 13:03>
[2018-08-30 18:25] LABS: SQUAMOUS EPITHIAL 3 /hpf (0-5); URINE AMORPHOUS SEDIMENT RARE /ul (<OCC); URINE BACTERIA RARE (<OCC); URINE BILIRUBIN NEGATIVE (NEGATIVE); URINE BLOOD NEGATIVE (NEGATIVE); URINE CLARITY CLOUDY (Clear); URINE COLOR YELLOW (YELLOW); URINE GLUCOSE (UA) NEG (Normal); URINE LEUKOCYTE ESTERASE SMALL Leu/uL (Negative); URINE PROTEIN NEGATIVE (NEGATIVE); URINE UROBILINOGEN 0.2-1.0 mg/dL (0.2-1.0)
--- NOTE | 2018-08-30 22:54 | ED PDOC ---
- Laboratory Results Result Diagrams: 08/30/18 16:56 08/30/18 16:56 Urine POC: Negative - ECG O2 Sat by Pulse Oximetry: 99 - Progress ED Course And Treament: Case endorsed to bond underwriter from Jessica BARTON pending CT 22:45 Patient states she is feeling better and does not wish to have CT at this time Abdomen soft, NT/ND. No blood in urine Patient educated on findings, discharged with rx Macrobid (dose given in ED), pyridium, naproxen Advised follow up PMD 2-3 days Return precautions given Patient demonstrates full understanding of discharge instructions Patient requires no further intervention in the ED and is stable for discharge at this time Disposition - Clinical Impression Clinical Impression: UTI (urinary tract infection), Ovarian cyst - POA Present On Arrival: None - Disposition Disposition: Routine/Home Disposition Time: 22:54 Condition: IMPROVED Prescriptions: Naproxen [Naprosyn] 500 mg PO Q12 PRN #20 tablet PRN Reason: Pain, Moderate (4-7) Nitrofurantoin Macrocrystals [Macrobid] 100 mg PO BID #13 cap Phenazopyridine HCl [Pyridium] 100 mg PO TID PRN #5 tab PRN Reason: Urinary Discomt Instructions: Ovarian Cysts, Urinary Tract Infections in Adults Forms: [facility] (Swedish)
[2018-08-30 23:02] VITALS: BP 153/99; PULSE 71; RESP 18; TEMP 98.2
--- NOTE | 2018-08-31 09:08 | US ---
Date of service: 08/30/2018 HISTORY: suprapubic pain COMPARISON: None available. TECHNIQUE: Transvaginal FINDINGS: UTERUS: Measures 9.4 x 4.6 x 5.8 cm. Normal in size and appearance. No fibroid or other mass lesion seen. ENDOMETRIUM: Measures 8 mm in diameter. Unremarkable. CERVIX: No cervical abnormality identified. RIGHT OVARY: Measures 3.0 x 1.5 x 2.7 cm. No solid mass. Normal flow. LEFT OVARY: Measures 2.8 x 2.3 x 2.6 cm. No solid mass. Normal flow. Complex cyst with low-level echoes, 1.3 x 1.5 x 1.9 cm. Likely hemorrhagic cyst. Consider follow-up transvaginal pelvic ultrasound examination in 6-8 weeks. FREE FLUID: Trace left adnexal fluid. OTHER FINDINGS: None. IMPRESSION: 1.9 cm complex left ovarian cyst, likely hemorrhagic cyst. Recommend follow-up transvaginal pelvic ultrasound examination in 6-8 weeks. No other significant abnormality. The preliminary findings for this examination were reported by [facility] at 7:39 p.m. on 08/30/2018. There is concurrence of this report with the preliminary findings.
[2018-09-03 05:22] VITALS: O2SAT 99
== END 2018-08-30 23:05 | disposition home or self-care (01) ==
LOC: H.ER 16:19
DX: N39.0 Urinary tract infection, site not specified (principal); N83.209 Unspecified ovarian cyst, unspecified side; I10 Essential (primary) hypertension
CPT/HCPCS: 76830; 80053; 81003; 85025; 87086; 96361; 96374; 96375; 99284; J1885; J2405; J7030